=== PATIENT | female | born 1985 | race American Indian/Alaskan Native ===

== ENCOUNTER 2017-01-28 18:35 | Emergency (ER) | payer SELFPAY ==
[2017-01-28 19:56] LABS: Basophils % (Auto) 0.2 % (0.0-1.8); Eosinophils % (Auto) 0.9 % (0.0-4.3); Hematocrit 37.2 % (30.3-42.9); Hemoglobin 12.5 gm/dl (10.1-14.3); Mean Corpuscular HGB Conc 34 % (30-34); Mean Corpuscular Hemoglobin 33 pg (28-32); Mean Corpuscular Volume 98 fl (79-97); Platelet Count 165 K/mm3 (140-440); Red Blood Count 3.79 M/mm3 (3.65-5.03); Red Cell Distribution Width 13.2 % (13.2-15.2); White Blood Count 13.9 K/mm3 (4.5-11.0)
[2017-01-28 20:06] LABS: Alanine Aminotransferase 21 units/L (7-56); Albumin 3.8 g/dL (3.9-5); Albumin/Globulin Ratio 1.1 %; Alkaline Phosphatase 40 units/L (35-129); Anion Gap 12 mmol/L; Bilirubin,Total 0.3 mg/dL (0.1-1.2); Blood Urea Nitrogen 4 mg/dL (7-17); Calcium 9.2 mg/dL (8.4-10.2); Carbon Dioxide 27 mmol/L (22-30); Chloride 95.2 mmol/L (98-107); Glucose 93 mg/dL (65-100); Potassium 3.6 mmol/L (3.6-5.0); Sodium 131 mmol/L (137-145); Total Protein 7.3 g/dL (6.3-8.2)
--- NOTE | 2017-01-28 22:27 | Ultrasound Report ---
FINAL REPORT PROCEDURE: US OB TRANSVAGINAL TECHNIQUE: Real-time transvaginal sonography of the uterus, placenta, amniotic fluid, adnexa, and fetus was performed with image documentation. Measurements were obtained to determine age/size. M-mode Doppler was used to document heartbeat. HISTORY: / ABD PAIN COMPARISON: No prior studies are available for comparison. FINDINGS: ADDITIONAL GESTATION: None. GENERAL: IUP: Single living intrauterine . Position: Breech position Placental position: Grade 0 anterior placenta, without previa. Amniotic fluid volume: Normal. MATERNAL: Uterus: Within normal limits. Cervical length: 3.4 cm. Internal Os: Closed. Left ovary 3.7 x 1.6 centimeters with normal flow FETUS: Heart rate and rhythm: 156 BPM, Regular. anatomic survey: Too early for anatomic survey MEASUREMENTS: BPD: 2.6 centimeters consistent with 14 weeks 4 days age and 13 percent growth HC: 9.8 centimeters consistent 14 weeks 4 days and 4 percent AC: 7.7 centimeters consistent with 14 week 1 day and 17 percent FL: 1.4 cm consistent 14 week 0 day and 6 percent Mean Gestational Age (composite criteria): 14 weeks 2 days age Ratio biometry: Cephalic index 82.6, HC AC 1.3 consistent with 71 percent, FL BPD 51.1, FL AC 17.6 Estimated Due Date (earliest scan): 07/27/2017 IMPRESSION: Single intrauterine gestation at 14 weeks 2 days. Estimated due date: 07/27/2017. Normal survey with appropriate growth.
--- NOTE | 2017-01-28 22:33 | Ultrasound Report ---
FINAL REPORT PROCEDURE: US OB \T\gt; = 14 WEEKS FETUS TECHNIQUE: Real-time transabdominal sonography of the uterus, placenta, amniotic fluid, adnexa, and fetus was performed with image documentation. Measurements were obtained to determine age/size. M-mode Doppler was used to document heartbeat. CPT 43191 HISTORY: / ABD PAIN COMPARISON: No prior studies are available for comparison. FINDINGS: ADDITIONAL GESTATION: None. GENERAL: IUP: Single living intrauterine . Position: Breech Placental position: Grade 0 anterior, without previa. Amniotic fluid volume: Normal. MATERNAL: Uterus: Within normal limits. Cervical length: 3.4 cm. Internal Os: Closed. FETUS: Heart rate and rhythm: 156 BPM, Regular. MEASUREMENTS: BPD: 2.6 centimeters consistent 14 weeks 4 days consistent 13 percent growth HC: 9.8 centimeters consistent with 14 weeks 4 days consistent with 4 percent growth AC: 7.7 centimeters consistent with 14 week 1 day consistent with 17 percent growth FL: 1.4 centimeters consistent 14 week 0 day consistent with 6 percent growth Mean Gestational Age (composite criteria): 14 weeks 2 days Ratio biometry: Cephalic index 82.6, HC/AC 1.3 consistent with 71 percent growth, FL BPD 51.1 , FL HC 13.8, FL AC 17.6 Estimated Due Date (earliest scan): 07/27/2017 IMPRESSION: Single intrauterine gestation at 14 weeks 2 days. Estimated due date: 07/27/2017. Normal survey with appropriate growth.
[2017-01-28 23:15] LABS: Bilirubin,Urine NEG (Negative); Blood,Urine MOD (Negative); Ketones,Urine 20 mg/dL (Negative); Leukocyte Esterase,Urine LG (Negative); Mucus,Urine 3+ /HPF; Nitrite,Urine NEG (Negative)
[2017-01-29] MEDS ORDERED: ZOFRAN IV ONE (04:28)
[2017-01-29] MEDS ORDERED: NACL 0.9% 1000 ML 1,000 ML IV ONE (04:28)
[2017-01-29] MEDS ORDERED: DILAUDID IV ONE (04:29)
--- NOTE | 2017-01-29 04:54 | Emergency Department Report ---
ED Abdominal Pain HPI - General Chief Complaint: Abdominal Pain Stated Complaint: FEELING PAIN Time Seen by Provider: 01/28/17 22:59 Source: patient Mode of arrival: Wheelchair Limitations: No Limitations - History of Present Illness Initial Comments: This is a 31-year-old female who is 13 weeks 6 days by ultrasound done just a few days ago. Complaining of lower abdominal pains as well as nausea and vomiting. She denies any diarrhea. She denies any vaginal discharge or vaginal bleeding. She states that she's had very difficult time trying to keep by mouth down. She has not had any OB care up to this point. She describes some mild lower abdominal tenderness associated with her complaint today as well. Patient was seen in an alternative ED just a few days ago and was diagnosed with UTI. She was started on antibiotics for this. She finishes her course on Wednesday apparently. She denies dysuria symptoms to me. Severity scale (0 -10): 4 Quality: dull Consistency: constant Improves With: nothing Worsens With: nothing Associated Symptoms: nausea, vomiting. denies: diarrhea, fever - Related Data Previous Rx's Medication Instructions Recorded Last Taken Type Ondansetron [Zofran TAB] 4 mg PO Q8HR PRN #30 tablet 01/29/17 Unknown Rx Pnv #14/Ferrous Fum/Folic Acid 1 each PO DAILY #30 tab.chew 01/29/17 Unknown Rx [Completenate Tablet Chew] Pyridoxine [Vitamin B-6] 50 mg PO DAILY #30 tablet 01/29/17 Unknown Rx Allergies Allergy/AdvReac Type Severity Reaction Status Date / Time acetaminophen [From Tylenol] Allergy Swelling Verified 01/28/17 19:06 diphenhydramine HCl Allergy Swelling Verified 01/28/17 19:06 [From Benadryl] ibuprofen Allergy Swelling Verified 01/28/17 19:06 THERAFLU Allergy Swelling Uncoded 01/28/17 19:06 ED Review of Systems ROS: Stated complaint: FEELING PAIN Other details as noted in HPI Comment: All other systems reviewed and negative Constitutional: denies: chills, fever Eyes: denies: eye pain, eye discharge, vision change ENT: denies: ear pain, throat pain Respiratory: denies: cough, shortness of breath, wheezing Cardiovascular: denies: chest pain, palpitations Endocrine: no symptoms reported Gastrointestinal: abdominal pain, nausea, vomiting. denies: diarrhea Genitourinary: denies: urgency, dysuria, discharge Musculoskeletal: denies: back pain, joint swelling, arthralgia Skin: denies: rash, lesions Neurological: denies: headache, weakness, paresthesias Psychiatric: denies: anxiety, depression Hematological/Lymphatic: denies: easy bleeding, easy bruising ED Past Medical Hx - Past Medical History Previous Medical History?: No - Surgical History Past Surgical History?: No - Social History Smoking Status: Never Smoker Substance Use Type: None - Medications Home Medications: Home Medications Medication Instructions Recorded Confirmed Last Taken Type Ondansetron [Zofran TAB] 4 mg PO Q8HR PRN #30 tablet 01/29/17 Unknown Rx Pnv #14/Ferrous Fum/Folic Acid 1 each PO DAILY #30 tab.chew 01/29/17 Unknown Rx [Completenate Tablet Chew] Pyridoxine [Vitamin B-6] 50 mg PO DAILY #30 tablet 01/29/17 Unknown Rx ED Physical Exam - General Limitations: No Limitations General appearance: alert, in distress (due to discomforts.) - Head Head exam: Present: atraumatic, normocephalic - Eye Eye exam: Present: normal appearance, EOMI. Absent: scleral icterus - ENT ENT exam: Present: normal exam, normal orophraynx, mucous membranes moist - Neck Neck exam: Present: normal inspection, full ROM. Absent: tenderness, lymphadenopathy - Respiratory Respiratory exam: Present: normal lung sounds bilaterally. Absent: respiratory distress, wheezes, rales - Cardiovascular Cardiovascular Exam: Present: regular rate, normal rhythm. Absent: systolic murmur, diastolic murmur, rubs, gallop - GI/Abdominal GI/Abdominal exam: Present: soft, tenderness (minimal left lower quadrant.), normal bowel sounds, other (gravid uterus consistent with dates.) - Extremities Exam Extremities exam: Present: normal inspection. Absent: tenderness, pedal edema, calf tenderness - Back Exam Back exam: Present: normal inspection. Absent: CVA tenderness (R), CVA tenderness (L), muscle spasm - Neurological Exam Neurological exam: Present: alert, oriented X3 - Psychiatric Psychiatric exam: Present: normal affect, normal mood - Skin Skin exam: Present: warm, dry, intact, normal color. Absent: rash ED Course Vital Signs 01/28/17 19:01 Temperature 98.2 F Pulse Rate 73 Respiratory 20 Rate Blood Pressure 130/76 O2 Sat by Pulse 99 Oximetry - Reevaluation(s) Reevaluation #1: 01/29/17 04:57 I suspect hyperemesis gravidarum is the etiology for her discomfort in general. Given IV fluids here. She does demonstrate still some evidence of a urinary tract infection. I did encourage her to continue with her antibiotics for her UTI. We'll write her for nausea medication for home as well as referral for continued OB care. Abdomen is otherwise nonsurgical for me here. Ultrasound is noted. Baby appears well. Rest of her electrolytes studies are within normal limits. ED Medical Decision Making - Lab Data Result diagrams: 01/28/17 19:30 01/28/17 19:30 Critical care attestation.: If time is entered above; I have spent that time in minutes in the direct care of this critically ill patient, excluding procedure time. ED Disposition Clinical Impression: Hyperemesis gravidarum Disposition: DISCHARGED TO HOME OR SELFCARE Is pt being admited?: No Does the pt Need Aspirin: No Condition: Stable Instructions: Hyperemesis Gravidarum (ED) Additional Instructions: Gradually advance diet as tolerated. Eat a bland diet. Prescriptions: Ondansetron [Zofran TAB] 4 mg PO Q8HR PRN #30 tablet PRN Reason: Nausea Pnv #14/Ferrous Fum/Folic Acid [Completenate Tablet Chew] 1 each PO DAILY #30 tab.chew Pyridoxine [Vitamin B-6] 50 mg PO DAILY #30 tablet Referrals: GINETTE PEDERSON MD [Staff Physician] - 3-5 Days [facility] [Provider Group] - 3-5 Days Time of Disposition: 05:04
[2017-01-29] MEDS ORDERED: D5/0.45NS 1,000 ML IV SCH (05:00)
[2017-01-29 06:37] VITALS: BP 124/72
== END 2017-01-29 06:37 | disposition home or self-care (01) ==
LOC: ED 18:35
DX: O21.0 Mild hyperemesis gravidarum (principal); Z88.6 Allergy status to analgesic agent; Z88.8 Allergy status to other drugs, medicaments and biological substances
CPT/HCPCS: 36415; 76805; 76817; 80053; 81001; 84702; 85025; 86900; 86901; 96361; 96374; 96375; 99284; J1170; J2405; J7030

== ENCOUNTER 2020-11-13 10:57 | Emergency (ER) | payer MEDICAID ==
--- NOTE | 2020-11-13 11:15 | Event Note ---
ED Screening Note ED Screening Note: severe abd pain vomiting no vag bleed or dc no cp or sob no fever or chills no back pain no cough lmp Nov has not taken home preg test normal bm this AM has been preg once and lost baby because of her "placenta." This initial assessment/diagnostic orders/clinical plan/treatment(s) is/are subject to change based on patients health status, clinical progression and re- assessment by fellow clinical providers in the ED. Further treatment and workup at subsequent clinical providers discretion. Patient/guardian urged not to elope from the ED as their condition may be serious if not clinically assessed and managed. Initial orders include: ro preg/ectopic
[2020-11-13 12:05] LABS: Eosinophils % (Auto) 0.4 % (0.0-4.3); Hematocrit 44.8 % (30.3-42.9); Hemoglobin 15.2 gm/dl (10.1-14.3); Lymphocytes # (Auto) 2.6 K/mm3 (1.2-5.4); Lymphocytes % (Auto) 19.7 % (13.4-35.0); Mean Corpuscular HGB Conc 34 % (30-34); Mean Corpuscular Volume 103 fl (79-97); Monocytes # (Auto) 0.9 K/mm3 (0.0-0.8); Monocytes % (Auto) 6.6 % (0.0-7.3); Platelet Count 149 K/mm3 (140-440); Red Blood Count 4.36 M/mm3 (3.65-5.03); Red Cell Distribution Width 13.4 % (13.2-15.2)
[2020-11-13 12:06] LABS: Alanine Aminotransferase 23 units/L (7-56); Albumin 4.8 g/dL (3.9-5); Basophils % (Auto) 0.3 % (0.0-1.8); Blood Urea Nitrogen 9 mg/dL (7-17); Calcium 9.1 mg/dL (8.4-10.2); Hemolysis Index 7
[2020-11-13 12:12] LABS: BUN/Creatinine Ratio 13
[2020-11-13 12:36] LABS: Bacteria,Urine 1+ /HPF (Negative); Bilirubin,Urine NEG (Negative); Blood,Urine MOD (Negative); Color,Urine Amber (Yellow); Mucus,Urine 3+ /HPF; Protein,Urine >500 mg/dL (Negative); Urobilinogen,Urine < 2.0 mg/dL (<2.0)
[2020-11-13] MEDS ORDERED: SODIUM CHLORIDE 0.9% 1000 ML 1,000 ML IV ONE (13:46)
[2020-11-13] MEDS ORDERED: cefTRIAXone/NS 1 GM/50 ML 1 GM/50 ML BAG IV ONE (13:46)
--- NOTE | 2020-11-13 14:05 | Emergency Department Report ---
ED Abdominal Pain HPI - General Chief Complaint: Abdominal Pain Stated Complaint: ABDOMINAL PAIN PUI?: No Time Seen by Provider: 11/13/20 11:13 Source: patient Mode of arrival: Ambulatory Limitations: No Limitations - History of Present Illness Initial Comments: 35 YO AA OBESE FEMALE COMES TO ER CO ABD PAIN. NO VAG BLEED OR DC. DOES NOT THINK SHE IS PREG. NO N/V/DIARRHEA OR CONSTIPATION. PAIN IS GENERALIZED. SHE HAS NO BACK PAIN. DENIES CP OR SOB DENIES DYSURIA OR FREQUENCY AMBULATORY TO ER. MD Complaint: abdominal pain Location: diffuse Radiation: none Migration to: no migration Severity: severe Severity scale (0 -10): 8 Quality: cramping Improves With: nothing Worsens With: nothing Associated Symptoms: denies other symptoms - Related Data Previous Rx's Medication Instructions Recorded Last Taken Type Sulfamethoxazole/Trimethoprim 1 each PO BID #10 tablet 11/13/20 Unknown Rx [Bactrim DS TAB] Allergies Allergy/AdvReac Type Severity Reaction Status Date / Time acetaminophen [From Tylenol] Allergy Swelling Verified 11/13/20 11:12 diphenhydramine HCl Allergy Swelling Verified 11/13/20 11:12 [From Benadryl] ibuprofen Allergy Swelling Verified 11/13/20 11:12 THERAFLU Allergy Swelling Uncoded 01/28/17 19:06 ED Review of Systems ROS: Stated complaint: ABDOMINAL PAIN Other details as noted in HPI Comment: All other systems reviewed and negative ED Past Medical Hx - Past Medical History Previous Medical History?: No Hx Deep Vein Thrombosis: No - Surgical History Past Surgical History?: No Hx Pacemaker: No Hx Internal Defibrillator: No - Family History Family history: no significant - Social History Smoking Status: Never Smoker Substance Use Type: None - Medications Home Medications: Home Medications Medication Instructions Recorded Confirmed Last Taken Type Sulfamethoxazole/Trimethoprim 1 each PO BID #10 tablet 11/13/20 Unknown Rx [Bactrim DS TAB] ED Physical Exam - General Limitations: No Limitations General appearance: alert, in no apparent distress - Head Head exam: Present: atraumatic, normocephalic - Eye Eye exam: Present: normal appearance - ENT ENT exam: Present: mucous membranes moist - Neck Neck exam: Present: normal inspection - Respiratory Respiratory exam: Present: normal lung sounds bilaterally. Absent: respiratory distress - Cardiovascular Cardiovascular Exam: Present: regular rate, normal rhythm. Absent: systolic murmur, diastolic murmur, rubs, gallop - GI/Abdominal GI/Abdominal exam: Present: soft, normal bowel sounds - Extremities Exam Extremities exam: Present: normal inspection - Back Exam Back exam: Present: normal inspection - Neurological Exam Neurological exam: Present: alert, oriented X3 - Psychiatric Psychiatric exam: Present: normal affect, normal mood - Skin Skin exam: Present: warm, dry, intact, normal color. Absent: rash ED Course Vital Signs 11/13/20 11/13/20 11/13/20 11:14 15:26 16:19 Temperature 97.6 F 98.3 F Pulse Rate 69 89 Respiratory 18 18 18 Rate Blood Pressure 136/95 Blood Pressure 142/52 [Right] O2 Sat by Pulse 95 100 Oximetry ED Medical Decision Making - Lab Data Result diagrams: 11/13/20 11:26 11/13/20 11:26 - Medical Decision Making Lab Results 11/13/20 11/13/20 11/13/20 Range/Units 11:26 11:26 11:26 WBC 13.3 H (4.5-11.0) K/mm3 RBC 4.36 (3.65-5.03) M/mm3 Hgb 15.2 H (10.1-14.3) gm/dl Hct 44.8 H (30.3-42.9) % MCV 103 H (79-97) fl MCH 35 H (28-32) pg MCHC 34 (30-34) % RDW 13.4 (13.2-15.2) % Plt Count 149 (140-440) K/mm3 Lymph % (Auto) 19.7 (13.4-35.0) % Pacific % (Auto) 6.6 (0.0-7.3) % Eos % (Auto) 0.4 (0.0-4.3) % Baso % (Auto) 0.3 (0.0-1.8) % Lymph # (Auto) 2.6 (1.2-5.4) K/mm3 Pacific # (Auto) 0.9 H (0.0-0.8) K/mm3 Eos # (Auto) 0.0 (0.0-0.4) K/mm3 Baso # (Auto) 0.0 (0.0-0.1) K/mm3 Seg Neutrophils % 73.0 H (40.0-70.0) % Seg Neutrophils # 9.7 H (1.8-7.7) K/mm3 Sodium 134 L (137-145) mmol/L Potassium 4.0 (3.6-5.0) mmol/L Chloride 97.5 L (98-107) mmol/L Carbon Dioxide 28 (22-30) mmol/L Anion Gap 13 mmol/L BUN 9 (7-17) mg/dL Creatinine 0.7 (0.6-1.2) mg/dL Estimated GFR > 60 ml/min BUN/Creatinine Ratio 13 % Glucose 143 H (65-100) mg/dL Lactic Acid (0.7-2.0) mmol/L Calcium 9.1 (8.4-10.2) mg/dL Total Bilirubin 0.50 (0.1-1.2) mg/dL AST 26 (5-40) units/L ALT 23 (7-56) units/L Alkaline Phosphatase 45 (35-129) units/L Total Protein 9.1 H (6.3-8.2) g/dL Albumin 4.8 (3.9-5) g/dL Albumin/Globulin Ratio 1.1 % Lipase 17 (13-60) units/L HCG, Quant < 2 (0-4) mIU/mL Urine Color (Yellow) Urine Turbidity (Clear) Urine pH (5.0-7.0) Ur Specific Ashby (1.003-1.030) Urine Protein (Negative) mg/dL Urine Glucose (UA) (Negative) mg/dL Urine Ketones (Negative) mg/dL Urine Blood (Negative) Urine Nitrite (Negative) Urine Bilirubin (Negative) Urine Urobilinogen (<2.0) mg/dL Ur Leukocyte Esterase (Negative) Urine WBC (Auto) (0.0-6.0) /HPF Urine RBC (Auto) (0.0-6.0) /HPF U Epithel Cells (Auto) (0-13.0) /HPF Urine Bacteria (Auto) (Negative) /HPF Urine Mucus /HPF Blood Type Ord Rhogam Gestat Weeks WEEKS 11/13/20 11/13/20 11/13/20 Range/Units 13:18 Unknown Unknown WBC (4.5-11.0) K/mm3 RBC (3.65-5.03) M/mm3 Hgb (10.1-14.3) gm/dl Hct (30.3-42.9) % MCV (79-97) fl MCH (28-32) pg MCHC (30-34) % RDW (13.2-15.2) % Plt Count (140-440) K/mm3 Lymph % (Auto) (13.4-35.0) % Pacific % (Auto) (0.0-7.3) % Eos % (Auto) (0.0-4.3) % Baso % (Auto) (0.0-1.8) % Lymph # (Auto) (1.2-5.4) K/mm3 Pacific # (Auto) (0.0-0.8) K/mm3 Eos # (Auto) (0.0-0.4) K/mm3 Baso # (Auto) (0.0-0.1) K/mm3 Seg Neutrophils % (40.0-70.0) % Seg Neutrophils # (1.8-7.7) K/mm3 Sodium (137-145) mmol/L Potassium (3.6-5.0) mmol/L Chloride (98-107) mmol/L Carbon Dioxide (22-30) mmol/L Anion Gap mmol/L BUN (7-17) mg/dL Creatinine (0.6-1.2) mg/dL Estimated GFR ml/min BUN/Creatinine Ratio % Glucose (65-100) mg/dL Lactic Acid 1.30 (0.7-2.0) mmol/L Calcium (8.4-10.2) mg/dL Total Bilirubin (0.1-1.2) mg/dL AST (5-40) units/L ALT (7-56) units/L Alkaline Phosphatase (35-129) units/L Total Protein (6.3-8.2) g/dL Albumin (3.9-5) g/dL Albumin/Globulin Ratio % Lipase (13-60) units/L HCG, Quant (0-4) mIU/mL Urine Color Seema (Yellow) Urine Turbidity Slightly-cloudy (Clear) Urine pH 6.0 (5.0-7.0) Ur Specific [place] 1.023 (1.003-1.030) Urine Protein >500 (Negative) mg/dL Urine Glucose (UA) Neg (Negative) mg/dL Urine Ketones Tr (Negative) mg/dL Urine Blood Mod (Negative) Urine Nitrite Neg (Negative) Urine Bilirubin Neg (Negative) Urine Urobilinogen < 2.0 (<2.0) mg/dL Ur Leukocyte Esterase Sm (Negative) Urine WBC (Auto) 28.0 H (0.0-6.0) /HPF Urine RBC (Auto) 20.0 (0.0-6.0) /HPF U Epithel Cells (Auto) 5.0 (0-13.0) /HPF Urine Bacteria (Auto) 1+ (Negative) /HPF Urine Mucus 3+ /HPF Blood Type A POSITIVE Ord Rhogam Gestat Weeks Rh pos WEEKS Vital Signs 11/13/20 11:14 Temperature 97.6 F Pulse Rate 69 Respiratory 18 Rate Blood Pressure 136/95 O2 Sat by Pulse 95 Oximetry 1L NS AND 1 GM ROCEPHIN LABS NOTED UA NOTED PREG NEG TAKING PO MEDICATED FOR PAIN/NAUSEA REPORTS FEELING BETTER ON REEXAM AMBULATORY DC HOME WITH DC POC - INCLUDING RX AND PCP PT VERBALIZES UNDERSTANDING. AFTER GETTING [facility] WHICH SHE REPORTS HAVING BEFORE PT GOT HIVES MEDICATED WITH DECADRON AND CLARITAN MONITORED AND ULTIMATELY DC HOME. SHE WAS AMBULATORY/TAKING PO AND HELPING OTHER PTS IN THE ER ACWR. Vital Signs 11/13/20 11/13/20 11/13/20 11:14 15:26 16:19 Temperature 97.6 F 98.3 F Pulse Rate 69 89 Respiratory 18 18 18 Rate Blood Pressure 136/95 Blood Pressure 142/52 [Right] O2 Sat by Pulse 95 100 Oximetry - Differential Diagnosis ro preg/uti Critical care attestation.: If time is entered above; I have spent that time in minutes in the direct care of this critically ill patient, excluding procedure time. ED Disposition Clinical Impression: UTI (urinary tract infection), Hives Disposition: DC-01 TO HOME OR SELFCARE Is pt being admited?: No Does the pt Need Aspirin: No Condition: Stable Instructions: Urinary Tract Infection, Adult, Abdominal Pain (ED) Additional Instructions: hydrate well with water motrin or tylenol for pain or fever med as ordered today WHEN YOU COMPLETE MEDS YOU NEED TO SEE PCP TO MAKE SURE THIS HAS GONE AWAY diet and activity as tolerated referral to pcp given below Prescriptions: Sulfamethoxazole/Trimethoprim [Bactrim DS TAB] 1 each PO BID #10 tablet Referrals: CECE ARELLANO MD [Staff Physician] - 3-5 Days Forms: Work/School Release Form(ED) Time of Disposition: 14:54
[2020-11-13] MEDS ORDERED: HYDROcodone/ACETAMINOPHEN 5-325 MG TAB PO ONE (14:53)
[2020-11-13] MEDS ORDERED: ONDANSETRON 4 MG ODT TAB PO ONE (14:53)
[2020-11-13] MEDS ORDERED: dexAMETHasone 4 MG/ML VIAL IM ONE (16:06)
[2020-11-13] MEDS ORDERED: CETIRIZINE 10 MG TAB PO ONE (16:06)
[2020-11-13 16:20] VITALS: BP 142/52
== END 2020-11-13 16:44 | disposition home or self-care (01) ==
LOC: ED 10:57
DX: N39.0 Urinary tract infection, site not specified (principal); L50.9 Urticaria, unspecified; Z88.8 Allergy status to other drugs, medicaments and biological substances; Z88.6 Allergy status to analgesic agent; Z79.899 Other long term (current) drug therapy
CPT/HCPCS: 36415; 80053; 81001; 82140; 83690; 84702; 85025; 86900; 86901; 87040; 87086; 96365; 96372; 99283; J0696; J1100; J7030; Q0162